=== PATIENT | female | born 1980 | race Caucasian/White ===

== ENCOUNTER 2017-05-19 12:07 | Emergency (ER) | payer BC, MEDICAID ==
[2017-05-19 12:12] VITALS: BP 133/78
--- NOTE | 2017-05-19 12:44 | EDM.PDOC ---
ED HPI GENERAL MEDICAL PROBLEM - General Chief Complaint: ENT Problem Stated Complaint: REACTION FROM INTIBATION FROM SURGERY Time Seen by Provider: 05/19/17 12:30 Source of Information: Reports: Patient History Limitations: Reports: No Limitations - History of Present Illness INITIAL COMMENTS - FREE TEXT/NARRATIVE: This 37 yo female patient reports to the ED with increased pain and redness of her tongue and gums. The patient reports she has noticed a whitish film on her tongue in the mornings, but does not have any other symptoms. The patient has attempted to use OTC medications with little to not symptom relief. The patient had surgery with Dr. Zelaya last week (Wednesday) and started to have symptoms on Wednesday. Onset Date: 05/14/17 Duration: Constant, Getting Worse Location: Reports: Face (mouth) Quality: Reports: Ache, Sharp Severity: Severe Improves with: Reports: None Worsens with: Reports: None Oral/Mouth Pain Score (Numeric/FACES): 7 - Related Data Allergies Allergy/AdvReac Type Severity Reaction Status Date / Time cephalexin monohydrate Allergy Hives Verified 06/05/15 18:46 [From Keflex] Penicillins Allergy Airway Verified 10/28/16 17:23 Tightness Tetracyclines Allergy Hives Verified 06/05/15 18:46 durabond Allergy Rash Uncoded 10/28/16 17:23 suture Allergy Rash Uncoded 10/28/16 17:23 Home Meds: Home Meds Omeprazole [priLOSEC OTC] 20 mg PO BID 02/13/15 [History] Spironolactone [Aldactone] 100 mg PO DAILY 02/13/15 [History] Ibuprofen 800 mg PO ASDIRECTED PRN 10/28/16 [History] DULoxetine [Cymbalta] 60 mg PO DAILY 05/19/17 [History] Past Medical History - Past Health History Medical/Surgical History: Denies Medical/Surgical History HEENT History: Reports: Impaired Vision Other HEENT History: contacts Cardiovascular History: Reports: Hypertension Other Cardiovascular History: high blood pressure with pregnancies Respiratory History: Reports: None Gastrointestinal History: Reports: GERD Genitourinary History: Reports: None 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 Musculoskeletal History: Reports: None Neurological History: Reports: Head Trauma Psychiatric History: Reports: Depression Endocrine/Metabolic History: Reports: None Hematologic History: Reports: None Immunologic History: Reports: None Oncologic (Cancer) History: Reports: None - Infectious Disease History Infectious Disease History: Reports: Chicken Pox - Past Surgical History Head Surgeries/Procedures: Reports: None GI Surgical History: Reports: Cholecystectomy Other GI Surgeries/Procedures: liliane cyst Female Surgical History: Reports: Section, Hysterectomy, Tubal Ligation, Other (See Below) Other Female Surgeries/Procedures: removal of cervix Social & Family History - Tobacco Use Smoking Status *Q: Never Smoker Second Hand Smoke Exposure: No - Caffeine Use Caffeine Use: Reports: Coffee, Soda, Tea - Alcohol Use Days Per Week of Alcohol Use: 0 - Recreational Drug Use Recreational Drug Use: No ED ROS ENT - Review of Systems Review Of Systems: ROS reveals no pertinent complaints other than HPI. ED EXAM, ENT - Physical Exam Exam: See Below Exam Limited By: No Limitations General Appearance: Alert, WD/WN, Moderate Distress Eye Exam: Bilateral Eye: EOMI, Normal Inspection, PERRL Ears: Normal External Exam, Normal Canal, Hearing Grossly Normal, Normal TMs Nose: Normal Inspection, Normal Mucousa, No Blood Mouth/Throat: Gum Swelling, Other (tongue swelling and erythema) Head: Atraumatic, Normocephalic Neck: Normal Inspection, Supple, Non-Tender, Full Range of Motion Respiratory/Chest: No Respiratory Distress, Lungs Clear, Normal Breath Sounds, No Accessory Muscle Use, Chest Non-Tender Cardiovascular: Normal Peripheral Pulses, Regular Rate, Rhythm, No Edema, No Gallop, No JVD, No Murmur, No Rub GI/Abdominal: Normal Bowel Sounds, Soft, Non-Tender, No Organomegaly, No Distention, No Abnormal Bruit, No Mass (Female) Exam: Deferred Rectal (Female) Exam: Deferred Back: Normal Inspection, Full Range of Motion Extremities: Normal Inspection, Normal Range of Motion, Non-Tender, No Pedal Edema, Normal Capillary Refill Neurological: Alert, Oriented, CN II-XII Intact, Normal Cognition, Normal Gait, Normal Reflexes, No Motor/Sensory Deficits Psychiatric: Normal Affect, Normal Mood Skin: Warm, Dry, Intact, Normal Color, No Rash Lymphatic: No Adenopathy Course - Vital Signs Last Recorded V/S: Last Vital Signs Temp 36.3 C 05/19/17 12:11 Pulse 79 05/19/17 12:11 Resp 18 05/19/17 12:11 BP 133/78 05/19/17 12:11 Pulse Ox 98 05/19/17 12:11 - Orders/Labs/Meds Orders: Active Orders 24 hr Category Date Time Status COMPREHENSIVE METABOLIC PN,CMP [CHEM] Urgent Lab 05/19/17 12:34 Ordered Labs: Laboratory Tests 05/19/17 Range/Units 12:41 WBC 13.7 H (5.0-10.0) 10^3/uL RBC 4.80 (4.2-5.4) 10^6/uL Hgb 13.8 (12.0-16.0) g/dL Hct 42.1 (37.0-47.0) % MCV 87.7 (80-100) fL MCH 28.8 (27.0-34.0) pg MCHC 32.8 L (33.0-35.0) g/dL Plt Count 291 (150-450) 10^3/uL Neut % (Auto) 69.3 (42.2-75.2) % Lymph % (Auto) 18.3 L (20.5-50.1) % [place] % (Auto) 7.7 (2-8) % Eos % (Auto) 4.3 H (1.0-3.0) % Baso % (Auto) 0.4 (0.0-1.0) % Departure - Departure Time of Disposition: 13:10 Disposition: Home, Self-Care 01 Condition: Fair Clinical Impression: Oral candidiasis - Discharge Information Instructions: Thrush, Adult, [id number] Forms: ED Department Discharge Care Plan Goals: The patient was advised of the examination and lab results during the visit. The patient was given a script for Nystatin Suspension ([id number] units/mL) #480 mL to take 4-6 mL by mouth 4 times per day for 10 days (swish around mouth and retain as long as possible then swallow) and Lidocaine Suspension (2%) #100 mL to swish 4 mL in mouth every 6 hours then spit as needed. If the patient has any additional symptoms or concerns, the patient should follow-up with her primary care facility or return to the emergency department. - My Orders Last 24 Hours: My Active Orders 05/19/17 12:34 COMPREHENSIVE METABOLIC PN,CMP [CHEM] Urgent - Assessment/Plan Last 24 Hours: My Active Orders 05/19/17 12:34 COMPREHENSIVE METABOLIC PN,CMP [CHEM] Urgent
[2017-05-19 13:07] LABS: CHLORIDE,CL 104 mmol/L (101-111); SODIUM,NA 137 mmol/L (135-145)
== END 2017-05-19 13:15 | disposition home or self-care (01) ==
LOC: DL.ED 12:07
DX: B37.0 Candidal stomatitis (principal); H54.7 Unspecified visual loss; I10 Essential (primary) hypertension; K21.9 Gastro-esophageal reflux disease without esophagitis; F32.9 Major depressive disorder, single episode, unspecified; Z90.49 Acquired absence of other specified parts of digestive tract; Z90.710 Acquired absence of both cervix and uterus; Z88.0 Allergy status to penicillin; Z88.1 Allergy status to other antibiotic agents; Z91.048 Other nonmedicinal substance allergy status; Z79.899 Other long term (current) drug therapy; Z98.51 Tubal ligation status
CPT/HCPCS: 36415; 80053; 85025; 99282

== ENCOUNTER 2018-03-06 19:25 | Emergency (ER) | payer BC, MEDICAID ==
[2018-03-06] MEDS ORDERED: Benzonatate 100 MG Cap PO ONE ×2 (19:26→20:31)
[2018-03-06] MEDS ORDERED: Albuterol 0.083% 2.5 MG/3 ML Neb Soln INH ONE (19:26)
[2018-03-06] MEDS ORDERED: predniSONE 20 MG Tab PO ONE ×2 (19:26→19:59)
[2018-03-06] MEDS ORDERED: Albuterol/Ipratropium 3.0-0.5 MG/3 ML Neb Soln NEB ONE (19:42)
[2018-03-06] MEDS ORDERED: Albuterol 0.083% 2.5 MG/3 ML Neb Soln NEB ONE (20:31)
[2018-03-06] MEDS ORDERED: Benzonatate 100 MG Cap ONE (20:32)
[2018-03-06] MEDS ORDERED: predniSONE 20 MG Tab ONE (20:32)
[2018-03-06] MEDS ORDERED: Albuterol 0.083% 2.5 MG/3 ML Neb Soln ONE (20:33)
--- NOTE | 2018-03-06 20:40 | EDM.PDOC ---
ED HPI GENERAL MEDICAL PROBLEM - General Chief Complaint: Respiratory Problem Stated Complaint: BRONCHIAL PNEUMONIA Time Seen by Provider: 03/06/18 19:35 Source of Information: Reports: Patient History Limitations: Reports: No Limitations - History of Present Illness INITIAL COMMENTS - FREE TEXT/NARRATIVE: Cold symptoms Wednesday and moved to chest, increased tightness today. Frequent dry cough. No fever. Bilateral Chest Pain Score (Numeric/FACES): 7 - Related Data Allergies Allergy/AdvReac Type Severity Reaction Status Date / Time cephalexin monohydrate Allergy Hives Verified 03/06/18 19:33 [From Keflex] clindamycin Allergy Other Verified 03/06/18 19:33 Penicillins Allergy Airway Verified 03/06/18 19:33 Tightness Tetracyclines Allergy Hives Verified 03/06/18 19:33 durabond Allergy Rash Uncoded 03/06/18 19:33 suture Allergy Rash Uncoded 03/06/18 19:33 Home Meds: Home Meds Omeprazole [priLOSEC OTC] 20 mg PO BID 02/13/15 [History] Spironolactone [Aldactone] 100 mg PO DAILY 02/13/15 [History] Ibuprofen 800 mg PO ASDIRECTED PRN 10/28/16 [History] DULoxetine [Cymbalta] 60 mg PO DAILY 05/19/17 [History] Furosemide [Lasix] 20 mg PO DAILY 03/06/18 [History] Past Medical History - Past Health History Medical/Surgical History: Denies Medical/Surgical History HEENT History: Reports: Impaired Vision Other HEENT History: contacts Cardiovascular History: Reports: Hypertension Other Cardiovascular History: high blood pressure with pregnancies Respiratory History: Reports: None Gastrointestinal History: Reports: GERD Genitourinary History: Reports: None 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 Musculoskeletal History: Reports: Fibromyalgia Neurological History: Reports: Head Trauma Psychiatric History: Reports: Depression Endocrine/Metabolic History: Reports: None Hematologic History: Reports: None Immunologic History: Reports: None Oncologic (Cancer) History: Reports: None - Infectious Disease History Infectious Disease History: Reports: Chicken Pox - Past Surgical History Head Surgeries/Procedures: Reports: None GI Surgical History: Reports: Cholecystectomy Other GI Surgeries/Procedures: liliane cyst Female Surgical History: Reports: Section, Hysterectomy, Tubal Ligation, Other (See Below) Other Female Surgeries/Procedures: removal of cervix Social & Family History - Tobacco Use Smoking Status *Q: Never Smoker Second Hand Smoke Exposure: No - Caffeine Use Caffeine Use: Reports: Coffee, Soda, Tea - Recreational Drug Use Recreational Drug Use: No ED ROS GENERAL - Review of Systems Review Of Systems: ROS reveals no pertinent complaints other than HPI. Constitutional: Reports: Malaise. Denies: Fever, Chills HEENT: Reports: No Symptoms Respiratory: Reports: Shortness of Breath, Cough Cardiovascular: Reports: No Symptoms GI/Abdominal: Reports: No Symptoms Musculoskeletal: Reports: No Symptoms Skin: Reports: No Symptoms Neurological: Reports: No Symptoms ED EXAM, GENERAL - Physical Exam Exam: See Below Exam Limited By: No Limitations General Appearance: Alert, Mild Distress Eye Exam: Bilateral Eye: EOMI, PERRL Ears: Normal External Exam, Normal TMs Nose: Normal Inspection Throat/Mouth: Normal Voice (mild hoarseness) Head: Atraumatic, Normocephalic Neck: Normal Inspection Respiratory/Chest: Decreased Breath Sounds, Wheezing, Other (harsh bronchial cough) Cardiovascular: Regular Rate, Rhythm GI/Abdominal: Normal Bowel Sounds, Soft Back Exam: Full Range of Motion Extremities: Normal Inspection Neurological: Alert, Oriented, Normal Cognition Psychiatric: Normal Affect, Normal Mood Skin Exam: Warm, Dry, Intact, Normal Color Course - Vital Signs Last Recorded V/S: Last Vital Signs Temp 98.4 F 03/06/18 20:52 Pulse 88 03/06/18 20:52 Resp 18 03/06/18 20:52 BP 137/79 03/06/18 20:52 Pulse Ox 99 03/06/18 20:52 - Orders/Labs/Meds Orders: Active Orders 24 hr Category Date Time Status RT Aerosol Therapy [RC] ASDIRECTED Care 03/06/18 19:42 Active RT Aerosol Therapy [RC] ASDIRECTED Care 03/06/18 20:32 Active Meds: Medications Discontinued Medications Generic Name Dose Route Start Last Admin Trade Name Freq PRN Reason Stop Dose Admin Albuterol 2.5 mg 03/06/18 20:31 03/06/18 20:39 Proventil Neb Soln NEB 03/06/18 20:32 2.5 mg ONETIME ONE Administration Albuterol Confirm 03/06/18 20:33 03/06/18 20:52 Proventil Neb Soln Administered 03/06/18 20:34 Not Given Dose 10 mg .ROUTE .STK-MED ONE Albuterol/Ipratropium 3 ml 03/06/18 19:42 03/06/18 19:45 Duoneb 3.0-0.5 Mg/3 Ml NEB 03/06/18 19:43 3 ml ONETIME ONE Administration Benzonatate 200 mg 03/06/18 20:31 03/06/18 20:38 Tessalon Perles PO 03/06/18 20:32 200 mg ONETIME ONE Administration Benzonatate Confirm 03/06/18 20:32 03/06/18 20:52 Tessalon Perles Administered 03/06/18 20:33 Not Given Dose 400 mg .ROUTE .STK-MED ONE Prednisone 40 mg 03/06/18 19:59 03/06/18 20:16 Prednisone PO 03/06/18 20:00 40 mg ONETIME ONE Administration Prednisone Confirm 03/06/18 20:32 03/06/18 20:52 Prednisone Administered 03/06/18 20:33 Not Given Dose 40 mg .ROUTE .STK-MED ONE - Radiology Interpretation Free Text/Narrative:: CXR negative - Re-Assessments/Exams Free Text/Narrative Re-Assessment/Exam: 03/06/18 23:18 Mild brief improvement with Duo neb. Follwed with Albuterol. Improved exchange. Decreased cough. Departure - Departure Time of Disposition: 20:36 Disposition: Home, Self-Care 01 Condition: Good Clinical Impression: Bronchitis - Discharge Information Instructions: Acute Bronchitis, Adult, [id number] Forms: ED Department Discharge Additional Instructions: albuterol nebulizer 2 puffs every 4 hours as needed tesselon pearles 200mg every 8 hours as needed for cough increase fluids prednisone 40mg in am then 30mg x 3 days, 20mg x 3 days then 10 mg x 3 days follow up if not improving - My Orders Last 24 Hours: My Active Orders 03/06/18 19:42 RT Aerosol Therapy [RC] ASDIRECTED 03/06/18 20:32 RT Aerosol Therapy [RC] ASDIRECTED - Assessment/Plan Last 24 Hours: My Active Orders 03/06/18 19:42 RT Aerosol Therapy [RC] ASDIRECTED 03/06/18 20:32 RT Aerosol Therapy [RC] ASDIRECTED
[2018-03-06 20:53] VITALS: BP 137/79
== END 2018-03-06 20:58 | disposition home or self-care (01) ==
LOC: DL.ED 19:25
DX: J40 Bronchitis, not specified as acute or chronic (principal); I10 Essential (primary) hypertension; Z88.1 Allergy status to other antibiotic agents; Z88.0 Allergy status to penicillin; Z91.048 Other nonmedicinal substance allergy status; Z79.899 Other long term (current) drug therapy
CPT/HCPCS: 71046; 99283; A9270; J7620

== ENCOUNTER 2018-11-16 15:57 | Emergency (ER) | payer BC, MEDICAID ==
[2018-11-16] MEDS ORDERED: Acetaminophen/oxyCODONE 325-5 MG Tab PO ONE (15:58)
[2018-11-16] MEDS ORDERED: Ondansetron 4 MG Tab.DIS PO ONE (15:58)
[2018-11-16 17:55] VITALS: BP 129/82
[2018-11-16 18:02] LABS: ANION GAP 15.5; CHLORIDE,CL 95 mmol/L (101-111); SODIUM,NA 133 mmol/L (135-145)
--- NOTE | 2018-11-16 18:35 | EDM.PDOC ---
Scribed by Edita Stevens 11/16/18 1834 for Madi Marcus PA <Madi Marcus - Last Filed: 11/16/18 19:00> ED HPI GENERAL MEDICAL PROBLEM - General Chief Complaint: Abdominal Pain Stated Complaint: POSSIBLE UBSTRUCTION Time Seen by Provider: 11/16/18 17:50 Source of Information: Reports: Patient, RN, RN Notes Reviewed History Limitations: Reports: No Limitations - History of Present Illness INITIAL COMMENTS - FREE TEXT/NARRATIVE: Patient presents to ER with abdominal pain. Patient is constipated. Two weeks ago she took Miralax x1 week. She has also had 1 Lactulose. She has also been using other over the counter laxatives. The abdominal pain has increased today with nausea and vomiting x7 in 1 hour. The patient reports she has a history of numerous abdominal surgeries. Onset: Gradual Duration: Getting Worse Location: Reports: Abdomen Quality: Reports: Ache Severity: Moderate Improves with: Reports: None Worsens with: Reports: None Associated Symptoms: Reports: No Other Symptoms Bilateral Lower Abdomen Pain Score (Numeric/FACES): 8 - Related Data Allergies Allergy/AdvReac Type Severity Reaction Status Date / Time cephalexin monohydrate Allergy Hives Verified 11/16/18 17:35 [From Keflex] clindamycin Allergy Other Verified 11/16/18 17:35 Penicillins Allergy Airway Verified 11/16/18 17:35 Tightness Tetracyclines Allergy Hives Verified 11/16/18 17:35 durabond Allergy Rash Uncoded 03/06/18 19:33 suture Allergy Rash Uncoded 03/06/18 19:33 Home Meds: Home Meds Omeprazole [priLOSEC OTC] 20 mg PO BID 02/13/15 [History] Spironolactone [Aldactone] 100 mg PO DAILY 02/13/15 [History] Ibuprofen 800 mg PO ASDIRECTED PRN 10/28/16 [History] DULoxetine [Cymbalta] 60 mg PO DAILY 05/19/17 [History] Furosemide [Lasix] 20 mg PO DAILY 03/06/18 [History] Past Medical History - Past Health History Medical/Surgical History: Denies Medical/Surgical History HEENT History: Reports: Impaired Vision Other HEENT History: contacts Cardiovascular History: Reports: Hypertension Other Cardiovascular History: high blood pressure with pregnancies Respiratory History: Reports: None Gastrointestinal History: Reports: GERD Genitourinary History: Reports: None 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 Musculoskeletal History: Reports: Fibromyalgia Neurological History: Reports: Head Trauma Psychiatric History: Reports: Depression Endocrine/Metabolic History: Reports: None Hematologic History: Reports: None Immunologic History: Reports: None Oncologic (Cancer) History: Reports: None - Infectious Disease History Infectious Disease History: Reports: Chicken Pox - Past Surgical History Head Surgeries/Procedures: Reports: None GI Surgical History: Reports: Cholecystectomy Other GI Surgeries/Procedures: liliane cyst Female Surgical History: Reports: Section, Hysterectomy, Tubal Ligation, Other (See Below) Other Female Surgeries/Procedures: removal of cervix Social & Family History - Tobacco Use Smoking Status *Q: Unknown Ever Smoked Second Hand Smoke Exposure: No - Caffeine Use Caffeine Use: Reports: Soda - Recreational Drug Use Recreational Drug Use: No ED ROS GENERAL - Review of Systems Review Of Systems: ROS reveals no pertinent complaints other than HPI. ED EXAM, GI/ABD - Physical Exam Exam: See Below Exam Limited By: No Limitations General Appearance: Alert, WD/WN, No Apparent Distress Eyes: Bilateral: Normal Appearance Ears: Normal External Exam, Normal Canal, Hearing Grossly Normal, Normal TMs Nose: Normal Inspection, Normal Mucosa, No Blood Throat/Mouth: Normal Inspection, Normal Lips, Normal Teeth, Normal Gums, Normal Oropharynx, Normal Voice, No Airway Compromise Head: Atraumatic, Normocephalic Neck: Normal Inspection, Supple, Non-Tender, Full Range of Motion Respiratory/Chest: No Respiratory Distress, Lungs Clear, Normal Breath Sounds, No Accessory Muscle Use, Chest Non-Tender Cardiovascular: Normal Peripheral Pulses, Regular Rate, Rhythm, No Edema, No Gallop, No JVD, No Murmur, No Rub GI/Abdominal Exam: Other (diffuse abdominal pain. Normal bowel movements. History of surgeries.) (Female) Exam: Deferred Rectal (Female) Exam: Deferred Back Exam: Normal Inspection, Full Range of Motion, NT Extremities: Normal Inspection, Normal Range of Motion, Non-Tender, Normal Capillary Refill, No Pedal Edema Neurological: Alert, Oriented, CN II-XII Intact, Normal Cognition, Normal Gait, Normal Reflexes, No Motor/Sensory Deficits Psychiatric: Normal Affect, Normal Mood Skin Exam: Warm, Dry, Intact, Normal Color, No Rash Lymphatic: No Adenopathy Course - Vital Signs Last Recorded V/S: Last Vital Signs Temp 98.1 F 11/16/18 17:49 Pulse 110 H 11/16/18 17:49 Resp 20 11/16/18 17:49 BP 129/82 11/16/18 17:49 Pulse Ox 100 11/16/18 17:49 - Orders/Labs/Meds Orders: Active Orders 24 hr Category Date Time Status Abdomen Pelvis w Cont [CT] Urgent Exams 11/16/18 18:16 Taken CULTURE URINE [RM] Stat Lab 11/16/18 17:16 Received Labs: Laboratory Tests 11/16/18 11/16/18 11/16/18 Range/Units 17:16 17:16 17:35 WBC 17.7 H (5.0-10.0) 10^3/uL RBC 4.81 (4.2-5.4) 10^6/uL Hgb 14.2 (12.0-16.0) g/dL Hct 43.2 (37.0-47.0) % MCV 89.8 (80-100) fL MCH 29.5 (27.0-34.0) pg MCHC 32.9 L (33.0-35.0) g/dL Plt Count 329 (150-450) 10^3/uL Neut % (Auto) 74.1 (42.2-75.2) % Lymph % (Auto) 16.8 L (20.5-50.1) % [place] % (Auto) 6.5 (2-8) % Eos % (Auto) 2.3 (1.0-3.0) % Baso % (Auto) 0.3 (0.0-1.0) % Sodium (135-145) mmol/L Potassium (3.6-5.0) mmol/L Chloride (101-111) mmol/L Carbon Dioxide (21.0-31.0) mmol/L Anion Gap BUN (7-18) mg/dL Creatinine (0.6-1.3) mg/dL Est Cr Clr Drug Dosing mL/min Estimated GFR (MDRD) BUN/Creatinine Ratio Glucose (74-105) mg/dL Calcium (8.4-10.2) mg/dl Total Bilirubin (0.2-1.0) mg/dL AST (10-42) IU/L ALT (10-60) IU/L Alkaline Phosphatase (42-121) IU/L Total Protein (6.7-8.2) g/dl Albumin (3.2-5.5) g/dl Globulin Albumin/Globulin Ratio Urine Color Yellow (YELLOW) Urine Appearance Clear (CLEAR) Urine pH 6.5 (5.0-9.0) Ur Specific [place] 1.010 (1.005-1.030) Urine Protein Negative (NEGATIVE) Urine Glucose (UA) Negative (NEGATIVE) Urine Ketones Negative (NEGATIVE) Urine Occult Blood Trace-intact H (NEGATIVE) Urine Nitrite Negative (NEGATIVE) Urine Bilirubin Negative (NEGATIVE) Urine Urobilinogen 0.2 (0.2-1.0) mg/dL Ur Leukocyte Esterase Small H (NEGATIVE) Urine RBC 0-5 /HPF Urine WBC 5-10 H (0-5/HPF) /HPF Ur Epithelial Cells Moderate H /HPF Urine Bacteria Few (0-FEW/HPF) /HPF Urine Opiates Screen Negative (NEGATIVE) Ur Oxycodone Screen Negative (NEGATIVE) Urine Methadone Screen Negative (NEGATIVE) Ur Barbiturates Screen Negative (NEGATIVE) U Tricyclic Antidepress Negative (NEGATIVE) Ur Phencyclidine Scrn Negative (NEGATIVE) Ur Amphetamine Screen Negative (NEGATIVE) U Methamphetamines Scrn Negative (NEGATIVE) Urine MDMA Screen Negative (NEGATIVE) U Benzodiazepines Scrn Negative (NEGATIVE) Urine Cocaine Screen Negative (NEGATIVE) U Marijuana (THC) Screen Negative (NEGATIVE) 11/16/18 Range/Units 17:35 WBC (5.0-10.0) 10^3/uL RBC (4.2-5.4) 10^6/uL Hgb (12.0-16.0) g/dL Hct (37.0-47.0) % MCV (80-100) fL MCH (27.0-34.0) pg MCHC (33.0-35.0) g/dL Plt Count (150-450) 10^3/uL Neut % (Auto) (42.2-75.2) % Lymph % (Auto) (20.5-50.1) % [place] % (Auto) (2-8) % Eos % (Auto) (1.0-3.0) % Baso % (Auto) (0.0-1.0) % Sodium 133 L (135-145) mmol/L Potassium 3.5 L (3.6-5.0) mmol/L Chloride 95 L (101-111) mmol/L Carbon Dioxide 26.0 (21.0-31.0) mmol/L Anion Gap 15.5 BUN 14 (7-18) mg/dL Creatinine 0.8 (0.6-1.3) mg/dL Est Cr Clr Drug Dosing 76.89 mL/min Estimated GFR (MDRD) > 60 BUN/Creatinine Ratio 17.50 Glucose 92 (74-105) mg/dL Calcium 9.1 (8.4-10.2) mg/dl Total Bilirubin 0.5 (0.2-1.0) mg/dL AST 20 (10-42) IU/L ALT 16 (10-60) IU/L Alkaline Phosphatase 77 (42-121) IU/L Total Protein 8.0 (6.7-8.2) g/dl Albumin 4.2 (3.2-5.5) g/dl Globulin 3.8 Albumin/Globulin Ratio 1.11 Urine Color (YELLOW) Urine Appearance (CLEAR) Urine pH (5.0-9.0) Ur Specific [place] (1.005-1.030) Urine Protein (NEGATIVE) Urine Glucose (UA) (NEGATIVE) Urine Ketones (NEGATIVE) Urine Occult Blood (NEGATIVE) Urine Nitrite (NEGATIVE) Urine Bilirubin (NEGATIVE) Urine Urobilinogen (0.2-1.0) mg/dL Ur Leukocyte Esterase (NEGATIVE) Urine RBC /HPF Urine WBC (0-5/HPF) /HPF Ur Epithelial Cells /HPF Urine Bacteria (0-FEW/HPF) /HPF Urine Opiates Screen (NEGATIVE) Ur Oxycodone Screen (NEGATIVE) Urine Methadone Screen (NEGATIVE) Ur Barbiturates Screen (NEGATIVE) U Tricyclic Antidepress (NEGATIVE) Ur Phencyclidine Scrn (NEGATIVE) Ur Amphetamine Screen (NEGATIVE) U Methamphetamines Scrn (NEGATIVE) Urine MDMA Screen (NEGATIVE) U Benzodiazepines Scrn (NEGATIVE) Urine Cocaine Screen (NEGATIVE) U Marijuana (THC) Screen (NEGATIVE) Meds: Medications Discontinued Medications Generic Name Dose Route Start Last Admin Trade Name Freq PRN Reason Stop Dose Admin Hydromorphone HCl 1 mg 11/16/18 19:41 11/16/18 19:48 Dilaudid IVPUSH 11/16/18 19:42 1 mg ONETIME ONE Administration Sodium Chloride 1,000 mls @ 999 mls/hr 11/16/18 18:36 11/16/18 18:59 Normal Saline IV 11/16/18 19:36 999 mls/hr .BOLUS ONE Administration Iopamidol 100 ml 11/16/18 18:16 11/16/18 18:58 Isovue-300 (61%) IVPUSH 11/16/18 18:17 100 ml ONETIME ONE Administration Ondansetron HCl 4 mg 11/16/18 19:41 11/16/18 19:48 Zofran IV 11/16/18 19:42 4 mg ONETIME ONE Administration Departure - Departure Disposition: Home, Self-Care 01 Clinical Impression: Vomiting Qualifiers: Vomiting type: unspecified Vomiting Intractability: unspecified Nausea presence : with nausea Qualified Code(s): R11.2 - Nausea with vomiting, unspecified Abdominal pain Qualifiers: Abdominal location: generalized Qualified Code(s): R10.84 - Generalized abdominal pain - Discharge Information Instructions: Abdominal Pain, Adult, [id number], Nausea and Vomiting, Adult, [id number], Constipation, Adult, [id number] Forms: ED Department Discharge Additional Instructions: Drink plenty of water Decrease the laxative use Eat soft, bland foods, liquids until abdominal pain gone. Nothing by mouth when nauseated Follow up with your primary care facility for possible GI consult. <Clarisa Mcdaniels - Last Filed: 11/16/18 20:42> Course - Radiology Interpretation Free Text/Narrative:: CT Abdomen/Pelvis with contrast: FINDINGS: Lower thorax: No acute findings. ABDOMEN: Liver: Normal. No mass. Gallbladder and bile ducts: Gallbladder is surgically absent. Pancreas: Normal. No ductal dilation. Spleen: Normal. No splenomegaly. Adrenals: Normal. No mass. Kidneys and ureters: Normal. No hydronephrosis. Stomach and bowel: Normal. No obstruction. No mucosal thickening. Appendix: No evidence of appendicitis. PELVIS: Bladder: Unremarkable as visualized. Reproductive: Unremarkable as visualized. ABDOMEN and PELVIS: Intraperitoneal space: Normal. No free air. No significant fluid collection. Bones/joints: No acute fracture. No dislocation. Soft tissues: There is moderate fat-containing infraumbilical ventral hernia. Vasculature: Normal. No abdominal aortic aneurysm. Lymph nodes: Normal. No enlarged lymph nodes. IMPRESSION: Moderate fat-containing lower ventral hernia. Thank you for allowing us to participate in the care of your patient. Dictated and Authenticated by: Chuck Rojas MD 11/16/2018 6:57 PM Central Time ([place] & [place]) See rad report - Re-Assessments/Exams Free Text/Narrative Re-Assessment/Exam: 11/16/18 20:38 Took over care of the patient at 1900 from DEMI Hickman. Labs and CT results pending. Discussed all diagnostics and findings with the patient. Asked that she follow up in the clinic for a GI consult. She was instructed to cut back significantly on the laxatives. Patient states understanding and agrees with the plan of care. Departure - Departure Time of Disposition: 20:40 Condition: Fair - Discharge Information *PRESCRIPTION DRUG MONITORING PROGRAM REVIEWED*: No *COPY OF PRESCRIPTION DRUG MONITORING REPORT IN PATIENT ALINE: No I have read and agree with the documentation that has been completed regarding this visit. By signing this record, I attest that the documentation was completed in my physical presence and is an accurate record of the encounter.
[2018-11-16] MEDS: Iopamidol 612 MG/ML 100 ML Bottle IVPUSH ONE (18:58)
[2018-11-16] MEDS: Sodium Chloride 0.9% 1,000 ML IV ONE (18:59)
[2018-11-16] MEDS: HYDROmorphone 1 MG/ML Syringe IVPUSH ONE (19:48)
[2018-11-16] MEDS: Ondansetron 4 MG/2 ML SDV IV ONE (19:48)
[2018-11-16] MEDS: Acetaminophen/oxyCODONE 325-5 MG Tab ONE (20:52)
[2018-11-16] MEDS: Ondansetron 4 MG Tab.DIS ONE (20:52)
== END 2018-11-16 20:48 | disposition home or self-care (01) ==
LOC: DL.ED 15:57
DX: R10.31 Right lower quadrant pain (principal); R10.32 Left lower quadrant pain; R11.2 Nausea with vomiting, unspecified; Z88.1 Allergy status to other antibiotic agents; Z88.8 Allergy status to other drugs, medicaments and biological substances; Z79.899 Other long term (current) drug therapy
CPT/HCPCS: 36415; 74177; 80053; 80305; 81001; 85025; 87086; 96365; 96375; 99284; A9270; J1170; J2405; J7030; Q9967

== ENCOUNTER 2018-11-28 17:21 | Emergency (ER) | payer BC, MEDICAID ==
[2018-11-28 17:38] VITALS: BP 147/96
--- NOTE | 2018-11-28 17:57 | EDM.PDOC ---
ED HPI GENERAL MEDICAL PROBLEM - General Chief Complaint: Upper Extremity Injury/Pain Stated Complaint: THINKS SHE BROKE HER FINGER Time Seen by Provider: 11/28/18 17:45 Source of Information: Reports: Patient History Limitations: Reports: No Limitations - History of Present Illness INITIAL COMMENTS - FREE TEXT/NARRATIVE: This 38 yo female patient reports to the ED with pain and swelling in her left right finger due to a fall in the [employer] parking lot. Onset: Today Duration: Constant (left ring finger) Location: Reports: Upper Extremity, Left Quality: Reports: Ache, Dull Severity: Moderate Improves with: Reports: None Worsens with: Reports: None Context: Reports: Other (fall ) Associated Symptoms: Reports: No Other Symptoms Left Finger-Ring Pain Score (Numeric/FACES): 8 - Related Data Allergies Allergy/AdvReac Type Severity Reaction Status Date / Time cephalexin monohydrate Allergy Hives Verified 11/16/18 17:35 [From Keflex] clindamycin Allergy Other Verified 11/16/18 17:35 Penicillins Allergy Airway Verified 11/16/18 17:35 Tightness Tetracyclines Allergy Hives Verified 11/16/18 17:35 durabond Allergy Rash Uncoded 03/06/18 19:33 suture Allergy Rash Uncoded 03/06/18 19:33 Home Meds: Home Meds Omeprazole [priLOSEC OTC] 20 mg PO BID 02/13/15 [History] Spironolactone [Aldactone] 100 mg PO DAILY 02/13/15 [History] Ibuprofen 800 mg PO ASDIRECTED PRN 10/28/16 [History] DULoxetine [Cymbalta] 60 mg PO DAILY 05/19/17 [History] Furosemide [Lasix] 20 mg PO DAILY 03/06/18 [History] Past Medical History - Past Health History Medical/Surgical History: Denies Medical/Surgical History HEENT History: Reports: Impaired Vision Other HEENT History: contacts Cardiovascular History: Reports: Hypertension Other Cardiovascular History: high blood pressure with pregnancies Respiratory History: Reports: None Gastrointestinal History: Reports: GERD Genitourinary History: Reports: None 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 Musculoskeletal History: Reports: Fibromyalgia Neurological History: Reports: Head Trauma Psychiatric History: Reports: Depression Endocrine/Metabolic History: Reports: None Hematologic History: Reports: None Immunologic History: Reports: None Oncologic (Cancer) History: Reports: None - Infectious Disease History Infectious Disease History: Reports: Chicken Pox - Past Surgical History Head Surgeries/Procedures: Reports: None GI Surgical History: Reports: Cholecystectomy Other GI Surgeries/Procedures: liliane cyst Female Surgical History: Reports: Section, Hysterectomy, Tubal Ligation, Other (See Below) Other Female Surgeries/Procedures: removal of cervix Social & Family History - Tobacco Use Smoking Status *Q: Never Smoker - Caffeine Use Caffeine Use: Reports: Soda - Recreational Drug Use Recreational Drug Use: No Review of Systems - Review of Systems Review Of Systems: ROS reveals no pertinent complaints other than HPI. ED EXAM, GENERAL - Physical Exam Exam: See Below Exam Limited By: No Limitations General Appearance: Alert, WD/WN, Mild Distress Eye Exam: Bilateral Eye: EOMI, Normal Inspection, PERRL Ears: Normal External Exam, Normal Canal, Hearing Grossly Normal, Normal TMs Nose: Normal Inspection, Normal Mucosa, No Blood Throat/Mouth: Normal Inspection, Normal Lips, Normal Teeth, Normal Gums, Normal Oropharynx, Normal Voice, No Airway Compromise Head: Atraumatic, Normocephalic Neck: Normal Inspection, Supple, Non-Tender, Full Range of Motion Respiratory/Chest: No Respiratory Distress Cardiovascular: Normal Peripheral Pulses, Regular Rate, Rhythm, No Edema, No Gallop, No JVD, No Murmur, No Rub GI/Abdominal: Normal Bowel Sounds, Soft, Non-Tender, No Organomegaly, No Distention, No Abnormal Bruit, No Mass (Female) Exam: Deferred Rectal (Female) Exam: Deferred Back Exam: Normal Inspection, Full Range of Motion, NT Extremities: Arm Pain (left 4th finger contusion) Neurological: Alert, Oriented, CN II-XII Intact, Normal Cognition, Normal Gait, Normal Reflexes, No Motor/Sensory Deficits Psychiatric: Normal Affect, Normal Mood Skin Exam: Warm, Dry, Intact, Normal Color, No Rash Lymphatic: No Adenopathy Course - Vital Signs Last Recorded V/S: Last Vital Signs Temp 36.0 C 11/28/18 17:37 Pulse 100 11/28/18 17:37 Resp 16 11/28/18 17:37 BP 147/96 H 11/28/18 17:37 Pulse Ox 100 11/28/18 17:37 - Orders/Labs/Meds Orders: Active Orders 24 hr Category Date Time Status Fingers Fourth Digit Lt F3 [CR] Urgent Exams 11/28/18 17:31 Taken Departure - Departure Time of Disposition: 17:54 Disposition: Home, Self-Care 01 Condition: Fair Clinical Impression: Contusion of left ring finger Qualifiers: Encounter type: initial encounter Damage to nail status: without damage Qualified Code(s): S60.042A - Contusion of left ring finger without damage to nail, initial encounter - Discharge Information *PRESCRIPTION DRUG MONITORING PROGRAM REVIEWED*: Not Applicable *COPY OF PRESCRIPTION DRUG MONITORING REPORT IN PATIENT ALINE: Not Applicable Instructions: Contusion, [id number] Forms: ED Department Discharge Care Plan Goals: The patient was advised of the examination and x-ray results during the visit. The patient's 3rd and 4th fingers were princess taped for support. The patient was encouraged to rest, ice and elevate her left hand over the next 24 hours. If the patient has any additional symptoms or concerns, the patient should either return to the emergency department or visit her primary care facility. - My Orders Last 24 Hours: My Active Orders 11/28/18 17:31 Fingers Fourth Digit Lt F3 [CR] Urgent - Assessment/Plan Last 24 Hours: My Active Orders 11/28/18 17:31 Fingers Fourth Digit Lt F3 [CR] Urgent
== END 2018-11-28 18:10 | disposition home or self-care (01) ==
LOC: DL.ED 17:21
DX: S60.042A Contusion of left ring finger without damage to nail, initial encounter (principal); I10 Essential (primary) hypertension; Z79.899 Other long term (current) drug therapy; Z88.0 Allergy status to penicillin; F32.9 Major depressive disorder, single episode, unspecified; W18.30XA Fall on same level, unspecified, initial encounter; Y92.481 Parking lot as the place of occurrence of the external cause
CPT/HCPCS: 73140-F3; 99283

== ENCOUNTER 2019-10-26 19:40 | Emergency (ER) | payer BC ==
[2019-10-26] MEDS ORDERED: Dicyclomine 20 MG/2 ML SDV IM ONE (19:51)
--- NOTE | 2019-10-26 19:57 | EDM.PDOC ---
ED HPI GENERAL MEDICAL PROBLEM - General Stated Complaint: AMBULANCE Time Seen by Provider: 10/26/19 19:52 Source of Information: Reports: Patient History Limitations: Reports: No Limitations - History of Present Illness INITIAL COMMENTS - FREE TEXT/NARRATIVE: tearful female c/o abd pain all week had CAT & labs 2 days ago told normal. no V &D but constant pain and retching. 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 told to take mag cit and pain got worse and called EMS. s/p gastric bypass Jovon last year, had no problem till now. Abdomen Pain Score (Numeric/FACES): 7 - Related Data Allergies Allergy/AdvReac Type Severity Reaction Status Date / Time cephalexin monohydrate Allergy Hives Verified 10/26/19 20:05 [From Keflex] clindamycin Allergy Other Verified 10/26/19 20:05 Penicillins Allergy Airway Verified 10/26/19 20:05 Tightness Tetracyclines Allergy Hives Verified 10/26/19 20:05 durabond Allergy Rash Uncoded 10/26/19 20:05 suture Allergy Rash Uncoded 10/26/19 20:05 Home Meds: Home Meds Omeprazole [priLOSEC OTC] 20 mg PO BID 02/13/15 [History] Spironolactone [Aldactone] 100 mg PO DAILY 02/13/15 [History] Ibuprofen 800 mg PO ASDIRECTED PRN 10/28/16 [History] DULoxetine [Cymbalta] 60 mg PO DAILY 05/19/17 [History] Furosemide [Lasix] 20 mg PO DAILY 03/06/18 [History] Past Medical History - Past Health History Medical/Surgical History: Denies Medical/Surgical History HEENT History: Reports: Impaired Vision Other HEENT History: contacts Cardiovascular History: Reports: Hypertension Other Cardiovascular History: high blood pressure with pregnancies Respiratory History: Reports: None Gastrointestinal History: Reports: GERD Genitourinary History: Reports: None 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 Musculoskeletal History: Reports: Fibromyalgia Neurological History: Reports: Head Trauma Psychiatric History: Reports: Depression Endocrine/Metabolic History: Reports: None Hematologic History: Reports: None Immunologic History: Reports: None Oncologic (Cancer) History: Reports: None - Infectious Disease History Infectious Disease History: Reports: Chicken Pox - Past Surgical History Head Surgeries/Procedures: Reports: None GI Surgical History: Reports: Cholecystectomy Other GI Surgeries/Procedures: liliane cyst Female Surgical History: Reports: Section, Hysterectomy, Tubal Ligation, Other (See Below) Other Female Surgeries/Procedures: removal of cervix Social & Family History - Caffeine Use Caffeine Use: Reports: Soda ED ROS GENERAL - Review of Systems Review Of Systems: Comprehensive ROS is negative, except as noted in HPI. ED EXAM, GI/ABD - Physical Exam Exam: See Below Exam Limited By: No Limitations General Appearance: Alert, WD/WN, Mild Distress, Other (tearful). No: Active Emesis Ears: Hearing Grossly Normal Throat/Mouth: Normal Voice, No Airway Compromise Head: Atraumatic Neck: Non-Tender, Full Range of Motion Respiratory/Chest: No Respiratory Distress Cardiovascular: Regular Rate, Rhythm GI/Abdominal Exam: Tender, Other (generalized). No: Distended, Guarding, Rigid , Rebound Neurological: Alert, Oriented, Normal Cognition, No Motor/Sensory Deficits Psychiatric: Flat Affect, Tearful Skin Exam: Warm, Dry, Normal Color Lymphatic: No Adenopathy Course - Vital Signs Last Recorded V/S: Last Vital Signs Temp 36.7 C 10/26/19 19:40 Pulse 87 10/26/19 19:40 Resp 18 10/26/19 19:40 BP 139/90 10/26/19 19:40 Pulse Ox 100 10/26/19 19:40 - Orders/Labs/Meds Orders: Active Orders 24 hr Category Date Time Status HYDROmorphone [Dilaudid] Med 10/26/19 21:01 Once 0.5 mg IVPUSH ONETIME ONE Labs: Laboratory Tests 10/26/19 10/26/19 10/26/19 Range/Units 19:54 19:54 19:54 WBC 14.8 H (5.0-10.0) 10^3/uL RBC 4.58 (4.2-5.4) 10^6/uL Hgb 13.7 (12.0-16.0) g/dL Hct 41.0 (37.0-47.0) % MCV 89.5 (80-100) fL MCH 29.9 (27.0-34.0) pg MCHC 33.4 (33.0-35.0) g/dL Plt Count 301 (150-450) 10^3/uL Neut % (Auto) 63.9 (42.2-75.2) % Lymph % (Auto) 23.9 (20.5-50.1) % [place] % (Auto) 8.1 H (2-8) % Eos % (Auto) 3.8 H (1.0-3.0) % Baso % (Auto) 0.3 (0.0-1.0) % Sodium 136 (135-145) mmol/L Potassium 3.5 L (3.6-5.0) mmol/L Chloride 103 (101-111) mmol/L Carbon Dioxide 24.0 (21.0-31.0) mmol/L Anion Gap 12.5 BUN 17 (7-18) mg/dL Creatinine 0.7 (0.6-1.3) mg/dL Est Cr Clr Drug Dosing TNP Estimated GFR (MDRD) > 60 BUN/Creatinine Ratio 24.28 Glucose 101 (74-105) mg/dL Lactic Acid 1.3 (0.5-2.0) mmol/L Calcium 9.0 (8.4-10.2) mg/dl Total Bilirubin 0.4 (0.2-1.0) mg/dL AST 17 (10-42) IU/L ALT 14 (10-60) IU/L Alkaline Phosphatase 73 (42-121) IU/L Total Protein 7.3 (6.7-8.2) g/dl Albumin 4.3 (3.2-5.5) g/dl Globulin 3.0 Albumin/Globulin Ratio 1.43 Amylase 31 (28-100) U/L Lipase 28 (22-51) U/L Meds: Medications Discontinued Medications Generic Name Dose Route Start Last Admin Trade Name Freq PRN Reason Stop Dose Admin Dicyclomine HCl 20 mg 10/26/19 19:51 10/26/19 20:06 Bentyl IM 10/26/19 19:52 Not Given ONETIME ONE Ondansetron HCl 4 mg 10/26/19 20:07 10/26/19 20:21 Zofran IVPUSH 10/26/19 20:08 4 mg ONETIME ONE Administration - Re-Assessments/Exams Free Text/Narrative Re-Assessment/Exam: 10/26/19 21:[address] Wade surgeon at [facility] who kindly accepted pt. Departure - Departure Time of Disposition: 21:04 Disposition: DC/Tfer to Acute Hospital 02 Condition: Good Clinical Impression: History of gastric bypass Abdominal pain Qualifiers: Abdominal location: periumbilical Qualified Code(s): R10.33 - Periumbilical pain - Discharge Information Forms: Interfacility Transfer EMTALA Sepsis Event Note - Focused Exam Vital Signs: Vital Signs Temp Pulse Resp BP Pulse Ox 10/26/19 19:40 36.7 C 87 18 139/90 100 Date Exam was Performed: 10/26/19 Time Exam was Performed: 21:02 - My Orders Last 24 Hours: My Active Orders 10/26/19 21:01 HYDROmorphone [Dilaudid] 0.5 mg IVPUSH ONETIME ONE - Assessment/Plan Last 24 Hours: My Active Orders 10/26/19 21:01 HYDROmorphone [Dilaudid] 0.5 mg IVPUSH ONETIME ONE
[2019-10-26] MEDS ORDERED: Ondansetron 4 MG/2 ML SDV IVPUSH ONE (20:07)
[2019-10-26 20:23] LABS: ANION GAP 12.5; CHLORIDE,CL 103 mmol/L (101-111); SODIUM,NA 136 mmol/L (135-145)
[2019-10-26] MEDS ORDERED: HYDROmorphone 1 MG/ML Syringe IVPUSH ONE ×2 (21:01→21:54)
[2019-10-26 21:12] VITALS: BP 131/73; PULSE 90
== END 2019-10-26 22:21 ==
LOC: DL.ED 19:40
DX: R10.33 Periumbilical pain (principal); I10 Essential (primary) hypertension; K21.9 Gastro-esophageal reflux disease without esophagitis; Z79.899 Other long term (current) drug therapy; Z98.84 Bariatric surgery status; F32.9 Major depressive disorder, single episode, unspecified; Z90.49 Acquired absence of other specified parts of digestive tract; Z90.710 Acquired absence of both cervix and uterus; Z88.1 Allergy status to other antibiotic agents; Z88.8 Allergy status to other drugs, medicaments and biological substances
CPT/HCPCS: 36415; 80053; 82150; 83605; 83690; 85025; 96374; 96375; 96376; 99285; J1170; J2405

== ENCOUNTER 2020-11-25 12:55 | Emergency (ER) | payer BC ==
--- NOTE | 2020-11-25 13:48 | EDM.PDOC ---
<Bravo Ortiz Brien - Last Filed: 11/25/20 15:55> ED HPI GENERAL MEDICAL PROBLEM - General Chief Complaint: Abdominal Pain Stated Complaint: APPENDIX? Time Seen by Provider: 11/25/20 13:43 Source of Information: Reports: Patient History Limitations: Reports: No Limitations - History of Present Illness INITIAL COMMENTS - FREE TEXT/NARRATIVE: 40 y/o F c/o abd pn since 430 this morning. Pt was awakened from R lower abd pn rates it a 9/10, constant and non radiating. Denies fever, cough, chills, drugs, etoh, trauma, blood in stool or urine. Hx of gastric bypass surgery. Has had her gall bladder, uterus and cervix removed. Pt still has her appendix. Has lost over 60lbs since her surgery. Onset: Today Location: Reports: Abdomen Quality: Reports: Sharp Severity: Moderate Improves with: Reports: None Worsens with: Reports: None Associated Symptoms: Reports: No Other Symptoms Right Lower Abdomen Pain Score (Numeric/FACES): 7 - Related Data Allergies Allergy/AdvReac Type Severity Reaction Status Date / Time cephalexin monohydrate Allergy Hives Verified 11/25/20 13:14 [From Keflex] clindamycin Allergy Other Verified 11/25/20 13:14 Penicillins Allergy Airway Verified 11/25/20 13:14 Tightness Tetracyclines Allergy Hives Verified 11/25/20 13:14 durabond Allergy Rash Uncoded 11/25/20 13:14 suture Allergy Rash Uncoded 11/25/20 13:14 Home Meds: Home Meds Omeprazole [priLOSEC OTC] 20 mg PO BID 02/13/15 [History] DULoxetine [Cymbalta] 30 mg PO DAILY 05/19/17 [History] Multivit-Min/Iron/Folic Acid/K [Bariatric Mv-Iron 45 mg Cap] 2 each PO DAILY 11/25/20 [History] buPROPion [Wellbutrin] 75 mg PO BID 11/25/20 [History] Past Medical History - Past Health History Medical/Surgical History: Denies Medical/Surgical History HEENT History: Reports: Impaired Vision Other HEENT History: contacts Cardiovascular History: Reports: Hypertension Other Cardiovascular History: high blood pressure with pregnancies Respiratory History: Reports: None Gastrointestinal History: Reports: GERD Genitourinary History: Reports: None APPLICATION DEVELOPMENT INTERN History: Reports: None Musculoskeletal History: Reports: Fibromyalgia Neurological History: Reports: Head Trauma Psychiatric History: Reports: Depression Endocrine/Metabolic History: Reports: None Hematologic History: Reports: None Immunologic History: Reports: None Oncologic (Cancer) History: Reports: None Dermatologic History: Reports: None - Infectious Disease History Infectious Disease History: Reports: Chicken Pox - Past Surgical History Head Surgeries/Procedures: Reports: None GI Surgical History: Reports: Cholecystectomy, Hernia Repair/Other, Other (See Below) Other GI Surgeries/Procedures: liliane cyst, gastric bypass Female Surgical History: Reports: Section, Hysterectomy, Tubal Ligation, Other (See Below) Other Female Surgeries/Procedures: removal of cervix Social & Family History - Tobacco Use Tobacco Use Status *Q: Never Tobacco User - Caffeine Use Caffeine Use: Reports: Coffee - Recreational Drug Use Recreational Drug Use: No ED ROS GENERAL - Review of Systems Review Of Systems: Comprehensive ROS is negative, except as noted in HPI. ED EXAM, GI/ABD - Physical Exam Exam: See Below Exam Limited By: No Limitations General Appearance: Alert, WD/WN, No Apparent Distress Ears: Normal External Exam, Normal Canal, Hearing Grossly Normal, Normal TMs Nose: Normal Inspection, Normal Mucosa, No Blood Throat/Mouth: Normal Inspection, Normal Lips, Normal Teeth, Normal Gums, Normal Oropharynx, Normal Voice, No Airway Compromise Head: Atraumatic, Normocephalic Neck: Normal Inspection, Supple, Non-Tender, Full Range of Motion Respiratory/Chest: No Respiratory Distress, Lungs Clear, Normal Breath Sounds, No Accessory Muscle Use, Chest Non-Tender Cardiovascular: Normal Peripheral Pulses, Regular Rate, Rhythm, No Edema, No Gallop, No JVD, No Murmur, No Rub GI/Abdominal Exam: Soft, No Organomegaly, No Distention, Tender (Female) Exam: Deferred Rectal (Female) Exam: Deferred Back Exam: Normal Inspection, Full Range of Motion, NT Extremities: Normal Inspection, Normal Range of Motion, Non-Tender, Normal Capillary Refill, No Pedal Edema Neurological: Alert, Oriented, CN II-XII Intact, Normal Cognition, Normal Gait, Normal Reflexes, No Motor/Sensory Deficits Psychiatric: Normal Affect, Normal Mood Skin Exam: Warm, Dry, Intact, Normal Color, No Rash Departure - Departure Time of Disposition: 15:55 Disposition: Home, Self-Care 01 Condition: Good Clinical Impression: Constipation - Discharge Information *PRESCRIPTION DRUG MONITORING PROGRAM REVIEWED*: Not Applicable *COPY OF PRESCRIPTION DRUG MONITORING REPORT IN PATIENT ALINE: Not Applicable Instructions: Constipation, Adult, [id number] Forms: ED Department Discharge Additional Instructions: As was discussed you can use a suppository laxative to help with bowel movements. Consider Miralax as an aide to improve bowel habits. High protein diets require more water consumption to avoid constipation. Consider increasing your water intake. If any new concerns or symptoms develop contact your primary care facility or return to the ER. Sepsis Event Note (ED) - Evaluation Sepsis Screening Result: No Definite Risk <Madi Marcus - Last Filed: 11/25/20 16:00> Course - Vital Signs Last Recorded V/S: Last Vital Signs Temp 37.2 C 11/25/20 13:07 Pulse 86 11/25/20 13:07 Resp 18 11/25/20 13:07 BP 114/72 11/25/20 13:07 Pulse Ox 99 11/25/20 13:07 - Orders/Labs/Meds Labs: Laboratory Tests 11/25/20 11/25/20 11/25/20 Range/Units 14:00 14:00 14:00 WBC 11.2 H (5.0-10.0) 10^3/uL RBC 4.43 (4.2-5.4) 10^6/uL Hgb 13.9 (12.0-16.0) g/dL Hct 40.0 (37.0-47.0) % MCV 90.3 (80-100) fL MCH 31.4 (27.0-34.0) pg MCHC 34.8 (33.0-35.0) g/dL Plt Count 262 (150-450) 10^3/uL Neut % (Auto) 66.7 (42.2-75.2) % Lymph % (Auto) 23.2 (20.5-50.1) % Crosby % (Auto) 7.0 (2-8) % Eos % (Auto) 2.6 (1.0-3.0) % Baso % (Auto) 0.5 (0.0-1.0) % Sodium 139 (136-145) mmol/L Potassium 3.6 (3.5-5.1) mmol/L Chloride 102 (98-107) mmol/L Carbon Dioxide 25 (21-32) mmol/L Anion Gap 15.6 H (7-13) mEq/L BUN 23 H (7-18) mg/dL Creatinine 0.72 (0.55-1.02) mg/dL Est Cr Clr Drug Dosing 83.79 mL/min Estimated GFR (MDRD) > 60 BUN/Creatinine Ratio 31.9 (No establ ref range) Glucose 84 (74-99) mg/dL Lactic Acid 0.5 (0.4-2.0) mmol/L Calcium 8.5 (8.5-10.1) mg/dL Total Bilirubin 0.3 (0.2-1.0) mg/dL AST 16 (15-37) U/L ALT 23 (14-59) U/L Alkaline Phosphatase 82 (46-116) U/L Total Protein 6.9 (6.4-8.2) g/dL Albumin 3.7 (3.4-5.0) g/dL Globulin 3.2 Albumin/Globulin Ratio 1.2 Urine Color (YELLOW) Urine Appearance (CLEAR) Urine pH (5.0-9.0) Ur Specific [place] (1.005-1.030) Urine Protein (NEGATIVE) Urine Glucose (UA) (NEGATIVE) Urine Ketones (NEGATIVE) Urine Occult Blood (NEGATIVE) Urine Nitrite (NEGATIVE) Urine Bilirubin (NEGATIVE) Urine Urobilinogen (0.2-1.0) mg/dL Ur Leukocyte Esterase (NEGATIVE) Urine RBC /HPF Urine WBC (0-5/HPF) /HPF Ur Epithelial Cells (NOT SEEN) /HPF Urine Bacteria (0-FEW/HPF) /HPF 11/25/ Range/Units 14:17 WBC (5.0-10.0) 10^3/uL RBC (4.2-5.4) 10^6/uL Hgb (12.0-16.0) g/dL Hct (37.0-47.0) % MCV (80-100) fL MCH (27.0-34.0) pg MCHC (33.0-35.0) g/dL Plt Count (150-450) 10^3/uL Neut % (Auto) (42.2-75.2) % Lymph % (Auto) (20.5-50.1) % Crosby % (Auto) (2-8) % Eos % (Auto) (1.0-3.0) % Baso % (Auto) (0.0-1.0) % Sodium (136-145) mmol/L Potassium (3.5-5.1) mmol/L Chloride (98-107) mmol/L Carbon Dioxide (21-32) mmol/L Anion Gap (7-13) mEq/L BUN (7-18) mg/dL Creatinine (0.55-1.02) mg/dL Est Cr Clr Drug Dosing mL/min Estimated GFR (MDRD) BUN/Creatinine Ratio (No establ ref range) Glucose (74-99) mg/dL Lactic Acid (0.4-2.0) mmol/L Calcium (8.5-10.1) mg/dL Total Bilirubin (0.2-1.0) mg/dL AST (15-37) U/L ALT (14-59) U/L Alkaline Phosphatase (46-116) U/L Total Protein (6.4-8.2) g/dL Albumin (3.4-5.0) g/dL Globulin Albumin/Globulin Ratio Urine Color Yellow (YELLOW) Urine Appearance Clear (CLEAR) Urine pH 6.0 (5.0-9.0) Ur Specific [place] 1.015 (1.005-1.030) Urine Protein Negative (NEGATIVE) Urine Glucose (UA) Negative (NEGATIVE) Urine Ketones Negative (NEGATIVE) Urine Occult Blood Trace-intact H (NEGATIVE) Urine Nitrite Negative (NEGATIVE) Urine Bilirubin Negative (NEGATIVE) Urine Urobilinogen 0.2 (0.2-1.0) mg/dL Ur Leukocyte Esterase Negative (NEGATIVE) Urine RBC 0-5 /HPF Urine WBC 0-5 (0-5/HPF) /HPF Ur Epithelial Cells Few (NOT SEEN) /HPF Urine Bacteria Few (0-FEW/HPF) /HPF Meds: Medications Discontinued Medications Generic Name Dose Route Start Last Admin Trade Name Freq PRN Reason Stop Dose Admin Hydromorphone HCl 0.5 mg 11/25/20 13:54 11/25/20 14:03 Dilaudid IVPUSH 11/25/20 13:55 0.5 mg ONETIME ONE Administration Hydromorphone HCl 1 mg 11/25/20 15:33 11/25/20 15:39 Dilaudid IVPUSH 02/22/21 15:34 1 mg ONETIME ONE Administration Iopamidol 100 ml 11/25/20 14:39 11/25/20 15:15 Isovue-300 (61%) IVPUSH 11/25/20 14:40 75 ml ONETIME ONE Administration - Re-Assessments/Exams Free Text/Narrative Re-Assessment/Exam: 11/25/20 16:00 I have examined the patient. I have discussed findings and treatment plan with the PA student. I agree with the assessment and plan in the following students note. Sepsis Event Note (ED) - Focused Exam Vital Signs: Vital Signs Temp Pulse Resp BP Pulse Ox 11/25/20 13:07 37.2 C 86 18 114/72 99
[2020-11-25] MEDS ORDERED: HYDROmorphone 0.5 MG/0.5 ML Syringe IVPUSH ONE (13:54)
[2020-11-25 14:27] LABS: ANION GAP 15.6 mEq/L (7-13); CHLORIDE,CL 102 mmol/L (98-107); SODIUM,NA 139 mmol/L (136-145)
[2020-11-25] MEDS ORDERED: Iopamidol 612 MG/ML 100 ML Bottle IVPUSH ONE (14:39)
--- NOTE | 2020-11-25 15:25 | CT ---
PROCEDURE INFORMATION: Exam: CT Abdomen And Pelvis With Contrast Exam date and time: 11/25/2020 2:49 PM Age: 40 years old Clinical indication: Abdominal pain; Prior surgery; Surgery date: 6+ months; Surgery type: Hysterectomy; Additional info: Lower abdominal pain (wbc - 11.2) TECHNIQUE: Imaging protocol: Computed tomography of the abdomen and pelvis with contrast. Radiation optimization: All CT scans at this facility use at least one of these dose optimization techniques: automated exposure control; mA and/or kV adjustment per patient size (includes targeted exams where dose is matched to clinical indication); or iterative reconstruction. Contrast material: [id number]; Contrast volume: 75 ml; Contrast route: INTRAVENOUS (IV); COMPARISON: CT Abdomen Pelvis wo Cont 10/24/2019 3:15 PM FINDINGS: Lungs: Unremarkable. Liver: Normal. No mass. Gallbladder and bile ducts: Post cholecystectomy. Intrahepatic bile ducts mildly dilated. Pancreas: Normal. No ductal dilation. Spleen: Normal. No splenomegaly. Adrenal glands: Normal. No mass. Kidneys and ureters: Normal. No hydronephrosis. Stomach and bowel: Unremarkable. No obstruction. No mucosal thickening. Appendix: No evidence of appendicitis. Intraperitoneal space: Postsurgical changes in the left upper quadrant. No free air. No significant fluid collection. Vasculature: Unremarkable. No abdominal aortic aneurysm. Lymph nodes: Unremarkable. No enlarged lymph nodes. Urinary bladder: Unremarkable as visualized. Reproductive: Unremarkable as visualized. Bones/joints: Unremarkable. No acute fracture. Soft tissues: Unremarkable. IMPRESSION: 1. Post cholecystectomy. Additional postsurgical changes in the left upper quadrant. 2. No acute abdominal or pelvic findings identified.
[2020-11-25] MEDS ORDERED: HYDROmorphone 1 MG/ML Syringe IVPUSH ONE (15:33)
[2020-11-25 16:22] VITALS: BP 119/80; PULSE 117
== END 2020-11-25 16:07 | disposition home or self-care (01) ==
LOC: DL.ED 12:55
DX: K59.00 Constipation, unspecified (principal); I10 Essential (primary) hypertension; K21.9 Gastro-esophageal reflux disease without esophagitis; Z98.84 Bariatric surgery status; Z90.710 Acquired absence of both cervix and uterus; Z90.49 Acquired absence of other specified parts of digestive tract; Z88.0 Allergy status to penicillin; Z88.1 Allergy status to other antibiotic agents; Z91.048 Other nonmedicinal substance allergy status; Z79.899 Other long term (current) drug therapy
CPT/HCPCS: 36415; 74177; 80053; 81001; 83605; 85025; 96374; 96376; 99282; 99284-25; J1170; Q9967